=== PATIENT | female | born 1960 ===

== ENCOUNTER → 2025-06-23 | Outpatient (CLI) | payer OTHER ==
[2025-06-24 09:18] LABS: Ferritin, Serum 33.0 ng/mL (8-252); Total Iron Binding Capacity 362.0 ug/dL (250-450)
== END | disposition home or self-care (01) ==
LOC: LAB 17:22 → LAB SHORT 17:22
DX: N18.30 Chronic kidney disease, stage 3 unspecified (principal)
CPT/HCPCS: 82728; 83540; 83550